=== PATIENT | male | born 1955 | race Caucasian/White ===

== ENCOUNTER 2019-05-27 05:47 | Outpatient (CLI) | payer MEDICARE ==
[~2019-05-27] VITALS: Ht 172 cm; Wt 82.7 kg
[2019-05-27] MEDS ORDERED: LISI10TA2 PO (16:23)
[2019-05-27] MEDS ORDERED: NAPR220C11 PO (16:23)
== END 2019-05-27 16:24 | disposition home or self-care (01) ==
LOC: PREOP 05:47
PROVIDERS: ATTEND Surgery
DX: Z01.818 Encounter for other preprocedural examination (principal)

== ENCOUNTER 2019-06-03 09:55 | Day surgery (SDC) | payer MEDICARE ==
--- NOTE | 2019-05-21 02:52 | HISTORY AND PHYSICAL ---
DATE OF SERVICE: DATE OF PROCEDURE: 06/03/2019. ATTENDING PHYSICIAN: Kyra Staley APRN. HISTORY OF PRESENT ILLNESS: The patient is a 63-year-old male who was referred over to us in need of a screening colonoscopy. The patient reports his last colonoscopy was approximately 15 years ago, which he reports was normal. He denies any diarrhea, constipation or any abdominal pain. He denies any blood in the stool as well as no family history of colon cancer. PAST MEDICAL HISTORY: Hypertension, degenerative joint disease, hypercholesterolemia, and testosterone deficiency. PAST SURGICAL HISTORY: Cholecystectomy, right total knee replacement x2. ALLERGIES: No known drug allergies. MEDICATIONS: Lisinopril 10 mg daily, Viagra p.r.n. SOCIAL HISTORY: Social for cigar smoke, rare for alcohol. FAMILY HISTORY: Brother with lung cancer. Vital signs - blood pressure is 152/72. Current weight is 187.3, height 5 feet 8 inch. REVIEW OF SYSTEMS: Well-nourished male, in no acute distress. He is not experiencing any shortness of breath or difficulty breathing. No chest pain, palpitations or diaphoresis. No nausea, vomiting or abdominal pain. No diarrhea or constipation. No red blood per rectum. No dark tarry stools. No fever or chills. No recent inadvertent weight loss. All other review of systems is negative. PHYSICAL EXAMINATION: CHEST: Clear. Good breath sounds bilaterally. HEART: Regular, no murmurs. EXTREMITIES: No lower extremity edema. Negative Homans sign. HEENT: No scleral icterus. No cervical lymphadenopathy. ABDOMEN: Soft, nontender, nondistended. SKIN: Warm, dry and pink. NEUROLOGIC: Awake, alert, oriented x3. ASSESSMENT AND PLAN: A 63-year-old male who is in need of a screening colonoscopy. Risks and benefits of the procedure as well as the procedure and home care instructions were explained to the patient. The patient verbalized understanding of instructions and agrees to this plan. At this time, we will proceed with scheduling the patient for a screening colonoscopy. Job ID: [id number] DocumentID: [id number] Dictated Date: 05/19/2019 15:34:36 Night Assistant Date: 05/19/2019 16:21:46 Dictated By: EVERTON DEGROOT APRN
[2019-06-03] VITALS (19 sets, daily range): BP systolic 112–171; BP diastolic 55–81
[~2019-06-03] VITALS: Ht 172 cm; Wt 82.7 kg
[~2019-06-03 09:55] MED LIST: LISI10TA2 PO; NAPR220C11 PO
[2019-06-03] MEDS ORDERED: NS IV 500 ML 500 ML ONE (10:08)
[2019-06-03] MEDS ORDERED: NS IV 500 ML 500 ML IV PRN (10:08)
[2019-06-03] MEDS ORDERED: LIDOCAINE JELLY 2% 6 ML SYRINGE MM PRN (10:15)
[2019-06-03] MEDS ORDERED: fentaNYL INJECTION 100 MCG/2 ML AMP IVP ONE (10:15)
[2019-06-03] MEDS ORDERED: ceFAZolin INJECTION 1,000 MG ONE (10:38)
[2019-06-03] MEDS ORDERED: WATER (STERILE) FOR INJECTION 10 ML ONE (10:42)
[2019-06-03] MEDS ORDERED: ceFAZolin INJECTION 1,000 MG in WATER (STERILE) FOR INJECTION 10 ML IV ONE (10:45)
--- NOTE | 2019-06-03 11:20 | Conscious Sedation/ASA ---
Conscious Sedation Pre-Proced Time 11:00 ASA Score 2 For ASA 3 and 4: Consider anesthesia and medical clearance. Also, for patients with a history of failed moderate sedation consider anesthesia. Airway Lungs Heart ASA score ASA 1: a normal healthy patient ASA 2: a patient with a mild systemic disease (mid diabetes, controlled hypertension, obesity ASA 3: a patient with a severe systemic disease that limits activity (angina, COPD, prior Myocardial infarction) ASA 4: a patient with an incapacitating disease that is a constant threat to life (CHF, renal failure) ASA 5: a moribund patient not expected to survive 24 hrs. (ruptured aneurysm) ASA 6: a declared brain- patient whose organs are being harvested. For emergent operations, add the letter E after the classification Mallampati Classification Grade 2 Sedation Plan Analgesia, Amnesia, Plan communicated to team members, Discussed options with patient/fam, Discussed risks with patient/fam The patient is an appropriate candidate to undergo the planned procedure, sedation, and anesthesia. The patient immediately re-assessed prior to indication. SALTY MATTHEWS MD Jun 03, 2019 11:20 POS
--- NOTE | 2019-06-03 11:21 | Progress Note-Pre Operative ---
Pre-Operative Progress Note H&P Reviewed The H&P was reviewed, patient examined and no changes noted. Date Seen by Provider: Jun 03, 2019 Time Seen by Provider: 11:00 Date H&P Reviewed: Jun 03, 2019 Time H&P Reviewed: 11:00 Pre-Operative Diagnosis: SALTY Becker MD Jun 03, 2019 11:21 POS
--- NOTE | 2019-06-03 11:22 | Discharge Inst-Surgical ---
D/C Lap Instructions-BYRON Follow Up Activity as tolerated High Fiber Diet 25g or more per day Avoid Alcohol, Caffeine, Spicy [place] and Acid foods. Drink 64 fluid oz or more of fluids per day. Symptoms to Report: Fever over 101 degree F, Nausea/Vomiting If any problems/questions: Contact your physician or go to Emergency Room SALTY MATTHEWS MD Jun 03, 2019 11:22 POS
[2019-06-03] MEDS ORDERED: HYDROcodone/APAP 5 MG/325 MG (LORTAB) TAB PO PRN (11:30)
[2019-06-03] MEDS ORDERED: morphine INJ 10 MG/ML 1ML (SYR OR VIAL) IVP PRN ×2 (11:30)
[2019-06-03] MEDS ORDERED: ONDANSETRON 4 MG/2 ML (SDV) Z0FRAN IVP PRN (11:30)
[2019-06-03] MEDS ORDERED: ACETAMINOPHEN 325 MG TABLET PO PRN (11:30)
[2019-06-03] MEDS ORDERED: LIDOCAINE JELLY 2% 6 ML SYRINGE ONE (11:50)
[2019-06-03] MEDS ORDERED: MIDAZOLAM 5 MG/5 ML (VERSED) VIAL ONE ×2 (11:50)
[2019-06-03] MEDS ORDERED: fentaNYL INJECTION 100 MCG/2 ML AMP ONE ×2 (11:51)
[2019-06-03] MEDS: MIDAZOLAM 5 MG/5 ML (VERSED) VIAL IV PRN ×4 (12:13→12:26)
--- NOTE | 2019-06-03 21:07 | OPERATIVE REPORT ---
DATE OF SERVICE: 06/03/2019 ATTENDING PRIMARY LEAD WEB DEVELOPER: Kyra Staley APRN at [facility]. PREOPERATIVE DIAGNOSIS: Screening colonoscopy. POSTOPERATIVE DIAGNOSIS: Mild chronic stage II external and internal hemorrhoids. PROCEDURE: Colonoscopy. SURGEON: Salty Matthews MD. ANESTHESIA: Conscious sedation. ESTIMATED BLOOD LOSS: Minimal. FINDINGS: Chronic stage II external and internal hemorrhoids, not actively edematous or inflamed and no bleeding. Normal sphincter tone was felt. Prostate gland was palpable and appeared normal. DISPOSITION: The patient tolerated the procedure well. INDICATIONS: The patient is a 63-year-old male in need of a screening colonoscopy. His first colonoscopy was at age 48 and he believes this to be normal. He states that he is not experiencing any major issues with diarrhea, no constipation as well as no red blood per rectum nor any dark tarry stools. He also does not report any family history of colon cancer. DESCRIPTION OF PROCEDURE: The patient was brought to the endoscopy suite, laid in left lateral decubitus position. After adequate IV pain and sedative medications and conscious sedation anesthesia, digital rectal examination was performed. Mild chronic stage II external and internal hemorrhoids were identified, which were not actively edematous nor inflamed and no bleeding. Normal sphincter tone was felt and there were no palpable masses. The endoscope was then intubated and anus and rectum gently insufflated. The endoscope was then advanced to the valves of Ly of the rectum with no polyps or any neoplasms identified. The endoscope was then advanced through the sigmoid colon where no diverticulosis identified. The endoscope was then advanced to the remainder of the descending, transverse and ascending colon to the cecum. These segments were normal. There were no polyps nor any neoplasms identified throughout the colon or rectum. Endoscope was then slowly withdrawn while taking a second look and suctioning of residual air with no additional findings. The patient tolerated the procedure well. We will recommend that he proceed with continued medical management with high fiber diet with 30 grams of fiber daily as well as significant amounts of water to promote soft stools on a daily basis. He does not need another colonoscopy for another 10 years. Job ID: [id number] DocumentID: [id number] Dictated Date: 06/03/2019 12:41:40 Medical Staff Specialist Date: 06/03/2019 21:05:32 Dictated By: SALTY MATTHEWS MD
== END 2019-06-03 14:00 | disposition home or self-care (01) ==
LOC: ENDO 09:55
PROVIDERS: ATTEND Surgery
DX: Z12.11 Encounter for screening for malignant neoplasm of colon (principal); K64.1 Second degree hemorrhoids; K64.8 Other hemorrhoids; I10 Essential (primary) hypertension; E29.1 Testicular hypofunction; F17.210 Nicotine dependence, cigarettes, uncomplicated; Z90.49 Acquired absence of other specified parts of digestive tract; Z79.899 Other long term (current) drug therapy; Z80.1 Family history of malignant neoplasm of trachea, bronchus and lung

== ENCOUNTER 2020-04-07 12:53 | Emergency (ER) | payer MEDICARE ==
[~2020-04-07] VITALS: Ht 175.2 cm; Wt 81.6 kg
[2020-04-07 12:55] VITALS: BP 162/81
[2020-04-07] MEDS ORDERED: AMOX-358 PO (13:09)
--- NOTE | 2020-04-07 13:09 | ED Upper Extremity ---
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 Tetanus is not up-to-date. Onset: just prior to arrival Severity: moderate Pain/Injury Location: right hand Method of Injury: direct blow Modifying Factors: Improves With Movement Allergies and Home Medications Allergies Coded Allergies: No Known Drug Allergies (Verified , 06/03/19) Home Medications Amoxicillin/Potassium Clav 1 Each Tablet, 1 EACH PO BID Prescribed by: HUSSAIN CASTELLANOS on 04/07/20 1309 Lisinopril 10 Mg Tablet, 10 MG PO DAILY, (Reported) Naproxen Sodium 220 Mg Capsule, 220 MG PO DAILY, (Reported) Patient Home Medication List Home Medication List Reviewed: Yes Review of Systems Constitutional: see HPI EENTM: see HPI Respiratory: no symptoms reported Cardiovascular: no symptoms reported Genitourinary: no symptoms reported Skin: see HPI Past Vvlfvxt-Nwrghn-Soszql Hx Patient Social History Type Used: Cigars 2nd Hand Smoke Exposure: Yes Recent Foreign Travel: No Contact w/Someone Who Travel: No Recent Hopitalizations: No Immunizations Up To Date Date of Pneumonia Vaccine: Mar 30, 2019 Date of Influenza Vaccine: Mar 30, 2019 Seasonal Allergies Seasonal Allergies: No Past Medical History Surgeries: Yes (TKR X2) Gallbladder, Orthopedic Respiratory: No Cardiac: Yes Hypertension Neurological: No Reproductive Disorders: No Sexually Transmitted Disease: No HIV/AIDS: No Genitourinary: No Gastrointestinal: No Musculoskeletal: No Endocrine: No HEENT: No (GLASSES) Loss of Vision: Denies Hearing Impairment: Hard of Hearing Cancer: No Psychosocial: No Integumentary: No Blood Disorders: No Adverse Reaction/Blood Tranf: No Physical Exam Vital Signs Vital Signs - First Documented 04/07/20 12:55 Temp 36.1 Pulse 76 Resp 20 B/P (MAP) 162/81 (108) Pulse Ox 97 O2 Delivery Room Air Capillary Refill : Height, Weight, BMI Height: 5'9" Weight: 186lbs. oz. 84.731996xp; 27.95 BMI Method: General Appearance: WD/WN, no apparent distress HEENT: PERRL/EOMI, normal ENT inspection Respiratory: no respiratory distress, no accessory muscle use Shoulder: normal inspection, non-tender Elbow/Forearm: normal inspection, non-tender Wrist: Yes normal inspection, Yes non-tender Hand: laceration (there is a laceration between the thumb and the pointer finger with depth to the subcutaneous tissue, it's 1.5 cm in length with minimal active bleeding. There is a superficial skin tear over the dorsal proximal aspect of the thumb) Neurologic/Psychiatric: alert, normal mood/affect, oriented x 3 Skin: normal color, warm/dry Procedures/Interventions Wound Location: Upper Extremities Wound Length (cm): 1.5 Wound's Depth, Shape: linear, sub Q Wound Explored: clean Irrigated w/ Saline (ccs): 40 Anesthesia: 1% Lidocaine Suture: Prolene Suture Size: 4-0 Number of Sutures: 3 Layer Closure?: 1 Number Deep Layer Sutures: 0 Progress/Results/Core Measures Results/Orders My Orders Orders - HUSSAIN CASTELLANOS APRN Dipht,Pertuss(Acell),Tet Adult (Boostrix (04/07/20 13:15) Cephalexin Capsule (Keflex Capsule) (04/07/20 13:15) Hand, Right, 3 Views (04/07/20 13:04) Medications Given in ED Current Medications Medications Dose Ordered Sig/Ghada Route Start Time Stop Time Status Last Admin Dose Admin Cephalexin HCl 500 mg ONCE ONCE PO 04/07/20 13:15 04/07/20 13:16 DC 04/07/20 13:20 500 MG Diphtheria/ Tetanus/Acell Pertussis 0.5 ml ONCE ONCE IM 04/07/20 13:15 04/07/20 13:16 DC 04/07/20 13:23 0.5 ML Vital Signs/I&O 04/07/20 12:55 Temp 36.1 Pulse 76 Resp 20 B/P (MAP) 162/81 (108) Pulse Ox 97 O2 Delivery Room Air Departure Communication (Admissions) 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 Concerned about infection. We'll put him on some antibiotics. Ray shows concern for fracture evidenced by a lucency at the base of the second metacarpal on x- ray. However there is absolutely no tenderness to palpation over this location no swelling either. As such he will not be treated for fracture. Impression Primary Impression: Hand laceration Disposition: 01 HOME, SELF-CARE Condition: Stable Departure-Patient Inst. Decision time for Depature: 13:07 Referrals: NO,LOCAL PHYSICIAN (PCP/Family) Primary Care Physician Patient Instructions: Laceration Repair With Stitches (DC) Add. Discharge Instructions: 1. Return to ER for any concerns 2. Follow-up with your doctor next week 3. Stitches out in 7-10 days. You can wash this letting water run over it starting this evening. All discharge instructions reviewed with patient and/or family. Voiced understanding. Scripts Amoxicillin/Potassium Clav (Augmentin 875-125 Tablet) 1 Each Tablet 1 EACH PO BID, #10 TAB 0 Refills Prov: HUSSAIN CASTELLANOS APRN 04/07/20 HUSSAIN CASTELLANOS APRN Apr 07, 2020 13:09
[2020-04-07] MEDS ORDERED: CEPHALEXIN 250 MG (KEFLEX) CAP PO ONE (13:15)
[2020-04-07] MEDS ORDERED: TETANUS,DIPTH,PERTUSS P/F (BOOSTRIX) 0.5 ML VIAL IM ONE (13:15)
--- NOTE | 2020-04-07 13:47 | Diagnostic Imaging Report ---
Indication: Right hand injury. Time of exam: 1:38 PM The oblique view demonstrates an obliquely oriented lucency through the proximal aspect of the 2nd metacarpal. There is also some minimal lucency within the more distal aspect of the scaphoid. This is not seen on the other 2 views and could be overlying the patient. Pain at the level of the 2nd metacarpal and navicular is recommended. There does appear to be soft tissue injury in the web space between the thumb and index finger. No radiopaque foreign bodies are seen. Remaining phalanges are intact. Distal radius and ulna appear intact. There appears to be chondrocalcinosis of the triangle fibrocartilage. IMPRESSION: Lucency in the region of the navicular and 2nd metacarpal, only seen on one view. Correlation to pain at these locations is recommended. No other significant abnormality is seen. Dictated by: Dictated on workstation # [id number]
== END 2020-04-07 13:55 | disposition home or self-care (01) ==
LOC: EDUNIT# 12:53 → ER 12:56
DX: S61.011A Laceration without foreign body of right thumb without damage to nail, initial encounter (principal); I10 Essential (primary) hypertension; Z23 Encounter for immunization; Z77.22 Contact with and (suspected) exposure to environmental tobacco smoke (acute) (chronic); W23.1XXA Caught, crushed, jammed, or pinched between stationary objects, initial encounter
CPT/HCPCS: 73130; 90715

== ENCOUNTER 2022-06-30 06:52 | Emergency (ER) | payer MEDICARE ==
[~2022-06-30] VITALS: Ht 175 cm; Wt 93.0 kg
[~2022-06-30 06:52] MED LIST changes: +AMOX-358 PO; -LISI10TA2 PO; +LISI10TA25 PO
[2022-06-30 07:33] LABS: BASOPHILS % (AUTO) 0 % (0-10); EOSINOPHILS # (AUTO) 0.1 10^3/uL (0.0-0.3); EOSINOPHILS % (AUTO) 1 % (0-10); HEMATOCRIT 48 % (40-54); HEMOGLOBIN 16.7 g/dL (13.3-17.7); LYMPHOCYTES # (AUTO) 1.7 10^3/uL (1.0-4.0); LYMPHOCYTES % (AUTO) 12 % (12-44); MEAN CORPUSCULAR HEMOGLOBIN 31 pg (25-34); MEAN CORPUSCULAR HGB CONC 35 g/dL (32-36); MEAN CORPUSCULAR VOLUME 89 fL (80-99); MEAN PLATELET VOLUME 9.4 fL (9.0-12.2); MONOCYTES # (AUTO) 1.1 10^3/uL (0.0-1.0); MONOCYTES % (AUTO) 8 % (0-12); NEUTROPHILS # (AUTO) 10.8 10^3/uL (1.8-7.8); NEUTROPHILS % (AUTO) 78 % (42-75); PLATELET COUNT 354 10^3/uL (130-400); WHITE BLOOD COUNT 13.8 10^3/uL (4.3-11.0)
[2022-06-30 07:41] LABS: ALBUMIN 5.2 GM/DL (3.2-4.5); CHLORIDE 101 MMOL/L (98-107); POTASSIUM 3.9 MMOL/L (3.6-5.0); SODIUM 137 MMOL/L (135-145)
[2022-06-30 07:43] LABS: CALCIUM 10.4 MG/DL (8.5-10.1)
[2022-06-30 07:44] LABS: GLUCOSE 106 MG/DL (70-105); TOTAL PROTEIN 8.3 GM/DL (6.4-8.2)
[2022-06-30 07:45] LABS: CARBON DIOXIDE 23 MMOL/L (21-32)
[2022-06-30 07:46] LABS: BILIRUBIN,TOTAL 0.8 MG/DL (0.1-1.0)
[2022-06-30 07:47] LABS: ALKALINE PHOSPHATASE 88 U/L (40-136); GFR ESTIMATED 93
[2022-06-30 07:48] LABS: BUN/CREATININE RATIO 19
[2022-06-30 07:50] LABS: ALANINE AMINOTRANSFERASE 47 U/L (0-55)
--- NOTE | 2022-06-30 07:56 | ED General ---
General Chief Complaint: Cardiac/General Problems Stated Complaint: HIGH BLOOD PRESSURE 166\\93 Nursing Triage Note: PT AMB TO RM 5 PT CO OF ELEVATED B/P TODAY AND FEELING A LITTLE ANXIOUS THIS AM AT 0300 STATES B/P ELEVATED THIS AM. DENIES C/P. SOA @THIS X Source of Information: Patient Exam Limitations: No Limitations History of Present Illness Date Seen by Provider: Jun 30, 2022 Time Seen by Provider: 07:11 Initial Comments Here with report of feeling anxious and jittery. Woke up at [address] He felt like he was having palpitations. This is new for him. Denies chest pain, shortness of breath, weakness, dizziness, sweating, nausea, vomiting or recent illness. He took his blood pressure noted it was more elevated than typical. States his blood pressure normally runs 130s systolic and it was 160s this morning. He does take lisinopril for about. 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 Follows with Dr. Maria Del Rosario Baker. Timing/Duration: 4-6 Hours Severity: Mild Allergies and Home Medications Allergies Coded Allergies: No Known Drug Allergies (Verified , 06/03/19) Patient Home Medication List Home Medication List Reviewed: Yes Amlodipine Besylate (Amlodipine Besylate) 5 Mg Tablet, 5 MG PO DAILY Prescribed by: MARIANO DONOVAN on 06/30/22 0856 Amoxicillin/Potassium Clav (Augmentin 875-125 Tablet) 1 Each Tablet, 1 EACH PO BID Prescribed by: HUSSAIN CASTELLANOS on 04/07/20 1309 Lisinopril (Lisinopril) 10 Mg Tablet, 10 MG PO DAILY, (Reported) Entered as Reported by: BAUDILIO GONZALEZ on 05/27/19 162 Naproxen Sodium (Aleve) 220 Mg Capsule, 220 MG PO DAILY, (Reported) Entered as Reported by: BAUDILIO GONZALEZ on 05/27/19 162 Review of Systems Review of Systems Constitutional: see HPI; No chills, No fever EENTM: No nose congestion, No throat pain Respiratory: No cough, No short of breath Cardiovascular: No edema; palpitations Gastrointestinal: No diarrhea, No nausea, No vomiting Genitourinary: no symptoms reported Musculoskeletal: no symptoms reported Psychiatric/Neurological: See HPI; Denies Weakness Past Lthxfzm-Fbucya-Zusntx Hx Patient Social History Tobacco Use?: No Smoking Status: Former Smoker Substance use?: No Alcohol Use?: Yes Alcohol type: Beer Alcohol Frequency: Once in a while Pt feels they are or have been: No Immunizations Up To Date Influenza Vaccine Up-to-Date: No; Not Current First/Initial COVID19 Vaccinat: 2020 Second COVID19 Vaccination Aman: 2020 Seasonal Allergies Seasonal Allergies: No Past Medical History Surgery/Hospitalization HX: R KNEE SURG,GALLBLADDER, HTN Surgeries: Yes (TKR X2) Gallbladder, Orthopedic Respiratory: No Cardiac: Yes Hypertension Neurological: No Reproductive Disorders: No Sexually Transmitted Disease: No HIV/AIDS: No Genitourinary: No Gastrointestinal: No Musculoskeletal: No Endocrine: No HEENT: No (GLASSES) Loss of Vision: Denies Hearing Impairment: Hard of Hearing Cancer: No Psychosocial: No Integumentary: No Blood Disorders: No Adverse Reaction/Blood Tranf: No Family Medical History Reviewed Nursing Family Hx No Pertinent Family Hx Physical Exam Vital Signs Vital Signs - First Documented 06/30/22 07:05 Temp 36.2 Pulse 93 Resp 24 B/P (MAP) 162/89 (113) Pulse Ox 96 Capillary Refill : Less Than 3 Seconds Height, Weight, BMI Height: 5'9" Weight: 186lbs. oz. 84.311885ev; 30.00 BMI Method: General Appearance: No Apparent Distress, WD/WN HEENT: PERRL/EOMI, Pharynx Normal Neck: Non Tender, Supple Respiratory: Lungs Clear, Normal Breath Sounds Cardiovascular: Regular Rate, Rhythm, No Murmur Gastrointestinal: Non Tender, Soft Back: Normal Inspection, No CVA Tenderness Extremity: Normal Inspection, Normal Range of Motion, Non Tender, No Calf Tenderness, No Pedal Edema Neurologic/Psychiatric: Alert, Oriented x3 Skin: Normal Color, Warm/Dry Procedures/Interventions Suture Size: 4-0 Progress/Results/Core Measures Suspected Sepsis SIRS Temperature: Pulse: 93 Respiratory Rate: 24 Laboratory Tests 06/30/22 07:26: White Blood Count 13.8H Blood Pressure 162 /89 Mean: 113 Laboratory Tests 06/30/22 07:26: Creatinine 0.90, Platelet Count 354, Total Bilirubin 0.8 Results/Orders Lab Results Laboratory Tests Test 06/30/22 07:26 06/30/22 09:05 Range/Units White Blood Count 13.8 H 4.3-11.0 10^3/uL Red Blood Count 5.42 4.30-5.52 10^6/uL Hemoglobin 16.7 13.3-17.7 g/dL Hematocrit 48 40-54 % Mean Corpuscular Volume 89 80-99 fL Mean Corpuscular Hemoglobin 31 25-34 pg Mean Corpuscular Hemoglobin Concent 35 32-36 g/dL Red Cell Distribution Width 12.5 10.0-14.5 % Platelet Count 354 130-400 10^3/uL Mean Platelet Volume 9.4 9.0-12.2 fL Immature Granulocyte % (Auto) 0 % Neutrophils (%) (Auto) 78 H 42-75 % Lymphocytes (%) (Auto) 12 12-44 % Monocytes (%) (Auto) 8 0-12 % Eosinophils (%) (Auto) 1 0-10 % Basophils (%) (Auto) 0 0-10 % Neutrophils # (Auto) 10.8 H 1.8-7.8 10^3/uL Lymphocytes # (Auto) 1.7 1.0-4.0 10^3/uL Monocytes # (Auto) 1.1 H 0.0-1.0 10^3/uL Eosinophils # (Auto) 0.1 0.0-0.3 10^3/uL Basophils # (Auto) 0.0 0.0-0.1 10^3/uL Immature Granulocyte # (Auto) 0.1 0.0-0.1 10^3/uL Sodium Level 137 135-145 MMOL/L Potassium Level 3.9 3.6-5.0 MMOL/L Chloride Level 101 98-107 MMOL/L Carbon Dioxide Level 23 21-32 MMOL/L Anion Gap 13 5-14 MMOL/L Blood Urea Nitrogen 17 7-18 MG/DL Creatinine 0.90 0.60-1.30 MG/DL Estimat Glomerular Filtration Rate 93 BUN/Creatinine Ratio 19 Glucose Level 106 H 70-105 MG/DL Calcium Level 10.4 H 8.5-10.1 MG/DL Corrected Calcium 8.5-10.1 MG/DL Total Bilirubin 0.8 0.1-1.0 MG/DL Aspartate Amino Transf (AST/SGOT) 27 5-34 U/L Alanine Aminotransferase (ALT/SGPT) 47 0-55 U/L Alkaline Phosphatase 88 40-136 U/L Troponin I < 0.028 < 0.028 <0.028 NG/ML Total Protein 8.3 H 6.4-8.2 GM/DL Albumin 5.2 H 3.2-4.5 GM/DL TSH [place] Testing 0.77 0.35-4.94 UIU/ML My Orders Orders - MARIANO DONOVAN MD Ed Iv/Invasive Line Start (06/30/22 07:19) Ekg Tracing (06/30/22 07:19) Cbc With Automated Diff (06/30/22 07:19) Comprehensive Metabolic Panel (06/30/22 07:19) Thyroid Analyzer (06/30/22 07:19) Troponin I [place] (06/30/22 07:19) Chest 1 View, Ap/Pa Only (06/30/22 07:19) Amlodipine Tablet (Norvasc Tablet) (06/30/22 09:00) Troponin I [place] (06/30/22 09:05) Medications Given in ED Current Medications Medications Dose Ordered Sig/Ghada Route Start Time Stop Time Status Last Admin Dose Admin Amlodipine Besylate 5 mg ONCE ONCE PO 06/30/22 09:00 06/30/22 09:01 DC 06/30/22 08:59 5 MG Vital Signs/I&O 06/30/22 06/30/22 07:05 09:45 Temp 36.2 Pulse 93 80 Resp 24 18 B/P (MAP) 162/89 (113) 161/82 Pulse Ox 96 97 Capillary Refill : Less Than 3 Seconds Blood Pressure Mean: 113 Progress Note : Progress Note Seen and evaluated. IV, CBC, CMP, troponin and thyroid studies ordered. EKG and chest x-ray ordered. Monitor patient. Differential includes chest pain cardiac event, hormone abnormality including thyroid dysfunction, electrolyte abnormality and hypertension. 0839: CBC shows slightly elevated white count and hemoglobin concentration with mild left shift. Chemistry shows normal electrolytes, normal thyroid, negative troponin but mildly elevated total protein and albumin. There may be a component of dehydration with this causing palpitations. Chest x-ray shows no acute findings on my interpretation pending radiology review. Monitor patient. 0850: Troponin is negative. Labs would just indicate mild concentration. Possible dehydration. Chest x-ray is negative and radiology review. We will give amlodipine 5 mg p.o. now. He is drinking water okay so we will not do IV fluid. I would like to repeat his troponin at 9:05 AM and if that is still negative then I think we can safely discharge him home. He does have mary ointment with Dr. Maria Del Rosario Baker. We will initiate outpatient prescription for amlodipine 5 mg p.o. daily and write for 2 weeks of that to get him to his appointment with Dr. Baker. She can adjust from there. I will send a copy of the chart to her office. Monitor patient. 0951: Repeat troponin negative. Discharged home with return precautions. Patient verbalized understanding instructions and agreement with plan. Blood pressure currently 161/89. ECG Initial ECG Impression Date: Jun 30, 2022 Initial ECG Impression Time: 07:29 Initial ECG Rate: 90 Initial ECG Rhythm: Normal Sinus Comment Sinus rhythm with left atrial abnormality, left axis deviation, right bundle branch block. With LVH noted. Question of the left anterior fascicular block. No evidence of ST elevation [place]. Interpreted by me. Diagnostic Imaging Diagonstic Imaging: Xray Plain Films/CT/US/NM/MRI: chest Comments [facility], [place] NAME: MANFRED CHAPARRO JR [facility] REC#: [id number] PT STATUS: REG ER : 1955 PHYSICIAN: MARIANO DONOVAN MD ADMIT DATE: 06/30/22/ER Draft Date of Exam:06/30/22 CHEST 1 VIEW, AP/PA ONLY INDICATION: Palpitations. TIME OF EXAM: 7:34 AM. COMPARISON: No prior studies are available for comparison. FINDINGS: The heart size is normal. The pulmonary vascularity is unremarkable. The lungs are clear. No infiltrate, effusion, or pneumothorax is detected. IMPRESSION: No acute cardiopulmonary process is detected. Dictated on workstation # [id number] Dict: 06/30/22 0832 Trans: 06/30/22 0836 [id number] Interpreted by: KEYSHAWN BETANCOURT MD Electronically signed by: Departure Impression Primary Impression: Uncontrolled hypertension Disposition: HOME, SELF-CARE Condition: Stable Departure-Patient Inst. Decision time for Depature: 09:51 Referrals: NO,LOCAL PHYSICIAN (PCP) Primary Care Physician MARIA DEL ROSARIO BAKER MD Patient Instructions: High Blood Pressure (DC), Palpitations (DC) Add. Discharge Instructions: All discharge instructions reviewed with patient and/or family. Voiced understanding. Take medications as directed. Start new prescription as directed. It is very important that you follow-up with Dr. Baker for recheck and further evaluation and to discuss your blood pressure. You should check and record your blood pressure daily so that you have a log of how you are doing on the new medicine. Return for chest pain, weakness, breathing problems, sweating, dizziness, vision or balance problems, fever or other concerns as needed. You need to make sure that you are drinking an appropriate amount of fluids to stay appropriately hydrated. Scripts Amlodipine Besylate (Amlodipine Besylate) 5 Mg Tablet 5 MG PO DAILY for 15 Days, #15 TAB 0 Refills Prov: MARIANO DONOVAN MD 06/30/22 Copy Copies To 1: MARIA DEL ROSARIO BAKER MD, TIMOTHY D MD Jun 30, 2022 07:56
[2022-06-30 08:26] LABS: TSH (THYROID ANALYZER) 0.77 UIU/ML (0.35-4.94)
--- NOTE | 2022-06-30 08:37 | Diagnostic Imaging Report ---
INDICATION: Palpitations. TIME OF EXAM: 7:34 AM. COMPARISON: No prior studies are available for comparison. FINDINGS: The heart size is normal. The pulmonary vascularity is unremarkable. The lungs are clear. No infiltrate, effusion, or pneumothorax is detected. IMPRESSION: No acute cardiopulmonary process is detected. Dictated by: Dictated on workstation # [id number]
[2022-06-30] MEDS ORDERED: AMLO-250 PO (08:56)
[2022-06-30] MEDS ORDERED: amLODIPine 5 MG (NORVASC) TAB PO ONE (09:00)
[2022-06-30 09:45] VITALS: BP 161/82
== END 2022-06-30 09:45 | disposition home or self-care (01) ==
LOC: EDUNIT# 06:52 → ER 06:57
DX: I10 Essential (primary) hypertension (principal); D72.829 Elevated white blood cell count, unspecified; R79.82 Elevated C-reactive protein (CRP); R77.0 Abnormality of albumin; Z87.891 Personal history of nicotine dependence
CPT/HCPCS: 36415; 71045; 80053; 84443; 84484; 85025; 93005